=== PATIENT | male | born 1955 | race Caucasian/White ===

== ENCOUNTER → 2016-10-27 | Outpatient (CLI) | payer BC ==
[~2016-10-27] MED LIST: ALUM-80 PO; CLON0.1T12 PO; DIPH-416 PO; DPKEC250 PO; HYDR50CA2 PO; NRV5 PO; OLAN1TAB9 PO; OXYC-88 PO; SALI0.6517; ZYP10; [UNRECOGNIZED DRUG - CODE]
[2016-10-27 12:13] LABS: BASO % 0.6 %; BASO ABS # 0.05 K/uL (0-0.2); COMPLETE YES; EOS % 2.6 %; HEMATOCRIT 41.9 % (42-52); IG% 0.2 %; LYMPH % 24.4 %; LYMPH ABS # 2.14 K/uL (1.2-3.4); MEAN CELL VOLUME 96.3 fL (80-100); MEAN CORPUSCULAR HEMOGLOBIN 33.3 pg (25-34); MEAN CORPUSCULAR HGB CONC 34.6 g/dl (32-36); MEAN PLATELET VOLUME 12.7 fL (7.4-10.4); MONO % 8.6 %; NEUT % 63.6 %; PLATELET COUNT 166 K/uL (130-400); RED BLOOD COUNT 4.35 M/uL (4.7-6.1); WHITE BLOOD COUNT 8.77 K/uL (4.8-10.8)
[2016-10-27 12:40] LABS: ALT/SGPT 18 U/L (12-78); BLOOD UREA NITROGEN 22 mg/dl (7-18); BUN/CREATININE RATIO 22.3 (10-20); CARBON DIOXIDE 28 mmol/L (21-32); CHLORIDE 106 mmol/L (98-107); GLUCOSE 97 mg/dl (70-99); SODIUM 140 mmol/L (136-145)
[2016-10-27 12:43] LABS: ALKALINE PHOSPHATASE 48 U/L (45-117); AST/SGOT 14 U/L (15-37)
[2016-10-29 11:16] LABS: HEPATITIS C VIRAL RNA BY PCR <15 DETECTED IU/ML (<15); HEPATITIS C VIRAL RNA(LOG) PCR <1.18 DETECTED LOG IU/ML (<1.18)
== END | disposition home or self-care (01) ==
LOC: C.LAB1850 10:47
PROVIDERS: ATTEND Internal Medicine Infectious Disease
DX: B19.20 Unspecified viral hepatitis C without hepatic coma (principal)

== ENCOUNTER → 2016-11-24 | Outpatient (CLI) | payer BC ==
[2016-11-24 12:00] LABS: BASO % 0.5 %; BASO ABS # 0.05 K/uL (0-0.2); COMPLETE YES; EOS % 2.5 %; HEMATOCRIT 44.1 % (42-52); IG% 0.4 %; LYMPH ABS # 2.18 K/uL (1.2-3.4); MEAN CELL VOLUME 97.4 fL (80-100); MEAN CORPUSCULAR HEMOGLOBIN 32.9 pg (25-34); MEAN CORPUSCULAR HGB CONC 33.8 g/dl (32-36); MEAN PLATELET VOLUME 12.5 fL (7.4-10.4); MONO % 7.9 %; NEUT % 65.7 %; PLATELET COUNT 166 K/uL (130-400); RED BLOOD COUNT 4.53 M/uL (4.7-6.1); WHITE BLOOD COUNT 9.47 K/uL (4.8-10.8)
[2016-11-24 12:23] LABS: ALB/GLOB RATIO 0.9 (0.9-2); ALKALINE PHOSPHATASE 58 U/L (45-117); ALT/SGPT 26 U/L (12-78); AST/SGOT 18 U/L (15-37); BLOOD UREA NITROGEN 24 mg/dl (7-18); BUN/CREATININE RATIO 23.8 (10-20); CALCIUM 8.6 mg/dl (8.5-10.1); CARBON DIOXIDE 26 mmol/L (21-32); CHLORIDE 108 mmol/L (98-107); GLUCOSE 107 mg/dl (70-99); POTASSIUM 4.2 mmol/L (3.5-5.1); SODIUM 143 mmol/L (136-145)
[2016-11-26 02:32] LABS: HEPATITIS C VIRAL RNA BY PCR <15 NOT DETECTED IU/ML (<15); HEPATITIS C VIRAL RNA(LOG) PCR <1.18 NOT DETECTED LOG IU/ML (<1.18)
== END | disposition home or self-care (01) ==
LOC: C.LAB1850 10:35
PROVIDERS: ATTEND Internal Medicine Infectious Disease
DX: B19.20 Unspecified viral hepatitis C without hepatic coma (principal)

== ENCOUNTER 2021-03-01 09:38 | Inpatient (IN) ==
--- NOTE | 2021-03-01 10:28 | Emergency Department Note ---
History of Present Illness General Chief complaint: Seizure Time Seen by Provider: 03/01/21 09:57 Source: patient Mode of arrival: EMS Limitations: altered mental status History of Present Illness Provider complaint: Seizure This is a 65-year-old male who presents to the ED with seizure-like activity. 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 He had his first seizure back in January 18 at which time he was found to have the brain tumors. The patient is taking medications for his brain tumors with regards to swelling and edema. He is currently on Decadron. He is on Dilantin and valproic acid for seizure prevention. The patient did not want any radiation therapy to the brain tumors. He did not want any treatment for his lung cancer. He has not set up with hospice as of yet. The patient had several seizures today that were concerning to the and she had him brought in for evaluation and is requesting hospice care assistance. Patient had received Ativan by EMS prior to arrival. The patient has no ability to communicate on his initial evaluation. The does state that he is able to communicate somewhat but not to his full extent prior to having his first seizure back in January. Home Medications Medication Instructions Recorded Confirmed Type cyclobenzaprine 5 mg tablet 5 mg PO HS #30 tab 08/10/20 03/01/21 Rx magnesium 250 mg tablet 250 mg PO DAILY 01/25/21 03/01/21 History mecobalamin (vitamin B12) 1,000 1,000 mcg PO DAILY 01/25/21 03/01/21 History mcg chewable tablet medical marijuana 1 tab PO DAILY 01/25/21 03/01/21 History melatonin 10 mg tablet 10 mg PO HS PRN 01/25/21 03/01/21 History omega-3 fatty acids 1,000 mg 1,000 mg PO DAILY 01/25/21 03/01/21 History capsule prevagen 1 tab PO DAILY 01/25/21 03/01/21 History pyridoxine (vitamin B6) 100 mg 100 mg PO DAILY tab 01/25/21 03/01/21 History tablet amlodipine 5 mg tablet 5 mg PO DAILY #90 tab 02/01/21 03/01/21 Rx oxycodone-acetaminophen 5 mg-325 1 tab PO TID PRN #60 tab 02/02/21 03/01/21 Rx mg tablet fentanyl 12 mcg/hr transdermal 1 patch TRANSDERMAL Q72H 02/11/21 03/01/21 History patch naproxen 500 mg tablet 500 mg PO BID 02/11/21 03/01/21 History dexamethasone 4 mg tablet 4 mg PO BID #20 tab 02/15/21 03/01/21 Rx levetiracetam 500 mg tablet 1,000 mg PO BID #120 tab 02/15/21 03/01/21 Rx pantoprazole 40 mg tablet,delayed 40 mg PO DAILY #30 tab 02/15/21 03/01/21 Rx release valproic acid 250 mg capsule 500 mg PO BID #120 cap 02/15/21 03/01/21 Rx phenytoin sodium extended 100 mg 100 mg PO TID cap 02/23/21 03/01/21 History capsule Allergies Allergy/AdvReac Type Severity Reaction Status Date / Time No Known Allergies Allergy Verified 03/01/21 11:04 Past Med/Surg History Medical History Anxiety COPD (chronic obstructive pulmonary disease) Emphysema lung Frostbite of hand (~1984) chronic knee andhand pain Hepatitis C virus infection cured after antiviral drug therapy History of frostbite Lost several fingers on bilat hands HTN (hypertension) IFG (impaired fasting glucose) Knee pain Lung nodule 2014, CT monitoring completed Male erectile disorder of organic origin MGUS (monoclonal gammopathy of unknown significance) (~2013) Seizure disorder (~2014) Tobacco use disorder 1-2 ppd Surgical History H/O craniotomy (2014) 2015, 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 Grandmother (Paternal) , Passed age 89 of Cancer in Abdomen? No problems noted. Father , Passed age 72 of [place] Prostate cancer, Onset Age: 71 Had radiation Mother , Passed age 68 from diabetic complications No problems noted. Brother Prostate cancer, Onset Age: 58 Currently being worked up / treated Daughter No problems noted. Son No problems noted. Denies family history of Ovarian cancer Breast cancer Lung cancer Colorectal cancer Stroke Social History Smoking Status: Current every day smoker Tobacco Type: Cigarettes Age Started Using Tobacco: 15; packs per day: 1.5; Years Smoked: 48; Second Hand Exposure: No; Hx Alcohol Use: Yes Alcohol type: wine Alcohol Intake Frequency: 2-4 x/Month Hx Substance Use: No Preferred Language: Frisian Communication Ability: Effective Visual Impairment: No Limitations Hearing Ability: Hard of Hearing Water Pump Assembler Required: No Beliefs That Will Affect Care: None marital status: Current Living Situation: Spouse current occupational status: employed 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) Feels Safe at Home: Yes Childhood Exposure to Second-Hand Smoke: Yes caffeine: Yes during the past year weight has: remained stable Dental Care, Regularly: No Physical Activity Frequency: Daily Physical Activity Frequency Comment: THROUGH WORK Seatbelt Use: always Sunscreen Use: No Review of Systems Unobtainable due to cognitive status Physical Exam Vital Signs Vital Signs - 24 hr 03/01/21 09:48 03/01/21 09:54 03/01/21 10:00 Temperature 36.6 C Temperature Source Oral Pulse Rate 71 70 68 Pulse Rate from SpO2 Sensor 69 Respiratory Rate 16 24 16 Blood Pressure 110/52 L 110/52 L Blood Pressure Mean 71 71 Pulse Oximetry 91 88 L Oxygen Delivery Method Oxymask Sepsis Recent Fever Within 48 Hours No Sepsis New/Unexplained Change in Mental Status N/A Sepsis Action Taken by Nursing No Action Required 03/01/21 10:16 03/01/21 10:30 03/01/21 11:00 Temperature Temperature Source Pulse Rate 65 63 Pulse Rate from SpO2 Sensor 65 63 Respiratory Rate 14 18 Blood Pressure Blood Pressure Mean Pulse Oximetry 92 93 Oxygen Delivery Method Oxymask Sepsis Recent Fever Within 48 Hours Sepsis New/Unexplained Change in Mental Status Sepsis Action Taken by Nursing 03/01/21 11:30 Temperature Temperature Source Pulse Rate 62 Pulse Rate from SpO2 Sensor 62 Respiratory Rate 23 Blood Pressure 113/59 L Blood Pressure Mean 77 Pulse Oximetry 94 Oxygen Delivery Method Sepsis Recent Fever Within 48 Hours Sepsis New/Unexplained Change in Mental Status Sepsis Action Taken by Nursing CONSTITUTIONAL/VITAL SIGNS: Reviewed / noted above. GENERAL: Non-toxic in appearance. Appears to be resting comfortably. INTEGUMENTARY: Warm, dry, and [place]. HEAD: Normocephalic. EYES: without scleral icterus or trauma. ENT/OROPHARYNX: clear and moist. LYMPHADENOPATHY/NECK: Is supple . RESPIRATORY: Lungs clear and equal. CARDIOVASCULAR: Regular rate and rhythm. GI/ABDOMEN: Soft. EXTREMITIES: Warm and well perfused. NEUROLOGICAL: Patient is unresponsive to sternal rub. Breathing with occasional pause. MUSCULOSKELETAL: No trauma. TRIAGE NURSING DOCUMENTATION REVIEWED. Medical Decision Making Differential Diagnosis Differential includes acute cardiac dysrhythmia, microinfarction, CVA, TIA, dehydration, anemia, electrolyte disturbance, seizure, trauma, intracranial bleeding, acute vascular catastrophe, thoracic aortic dissection, PE, abdominal aortic aneurysm rupture, infection, hypoglycemia, overdose, trauma. Medical Records Attestation: I reviewed the patient's medical records. Home Medications Current Medication List: was personally reviewed by me Laboratory Data Attestation: I reviewed the patient's lab results. Result diagrams: 03/01/21 10:19 03/01/21 10:19 Lab Results 03/01/21 03/01/21 03/01/21 Range/Units 10:19 10:19 10:19 WBC 13.56 H (4.8-10.8) K/uL RBC 4.12 L (4.7-6.1) M/uL Hgb 13.4 L (14.0-18.0) g/dL Hct 40.4 L (42-52) % MCV 98.1 (80-100) fL MCH 32.5 (25-34) pg MCHC 33.2 (32-36) g/dL RDW Std Deviation 53.7 H (36.4-46.3) fL RDW Coeff of Keny 15.0 H (11.5-14.5) % Plt Count 196 (130-400) K/uL MPV 10.7 H (7.4-10.4) fL Immature Gran % (Auto) 1.0 % Neut % (Auto) 90.1 % Lymph % (Auto) 4.6 % Gilmer % (Auto) 4.1 % Eos % (Auto) 0.1 % Baso % (Auto) 0.1 % Neut # (Auto) 12.22 H (1.4-6.5) K/uL Lymph # (Auto) 0.62 L (1.2-3.4) K/uL Gilmer # (Auto) 0.56 (0.11-0.59) K/uL Eos # (Auto) 0.02 (0-0.5) K/uL Baso # (Auto) 0.01 (0-0.2) K/uL Immature Gran # (Auto) 0.13 H (0.00-0.02) K/uL Sodium 141 (136-145) mmol/L Potassium 3.8 (3.5-5.1) mmol/L Chloride 108 H (98-107) mmol/L Carbon Dioxide 26 (21-32) mmol/L Anion Gap 7.0 (3-11) BUN 22 H (7-18) mg/dl Creatinine 1.01 (0.6-1.4) mg/dl Est Cr Clr Drug Dosing 72.9 ml/min Est GFR ( Amer) 90.0 ml/min Est GFR (Non-Af Amer) 77.7 ml/min BUN/Creatinine Ratio 21.4 H (10-20) Glucose 109 H (70-99) mg/dl Calcium 8.1 L (8.5-10.1) mg/dl Phenytoin 3.9 L (10-20) mcg/ml Valproic Acid 20 L (50-100) mcg/ml Imaging Data Radiologist's Impression: Head CT 03/01/21 10:10 CT head/brain wo con CLINICAL HISTORY: Seizure. History of brain neoplasm. COMPARISON STUDY: 01/18/2021 TECHNIQUE: Axial CT of the brain is performed from the vertex to the skull base . IV contrast was not administered for this examination. A dose lowering technique was utilized adhering to the principles of ALARA. CT DOSE: 614.27 mGy.cm FINDINGS: There is enlarging 23 mm hyperdense left temporal lobe mass with surrounding vasogenic edema. There is an enlarging 18 mm right posterior parietal mass with surrounding vasogenic edema. There is no CT evidence of acute cortical infarction. There is no midline shift. There are postsurgical changes of a prior right frontal craniotomy. There is persistent right frontal lobe encephalomalacia. There is stable CSF density located medial to the superior aspect of the lateral ventricles anteriorly. There is persistent mild ventricular dilatation. There is no evidence of acute sinusitis IMPRESSION: 1. Enlarging bilateral hyperdense intraparenchymal lesions with surrounding vasogenic edema. The findings are highly suspicious for intracranial metastasis. ACT 112: Negative or not required by law. Electronically signed by: Eduardo Muse M.D. 03/01/2021 10:49 AM ECG Data Attestation: I personally reviewed and interpreted this ECG as follows: Indication: + weakness Rate (beats per minute): 72 Rhythm: + normal sinus ECG Intervals/blocks: + Normal QT-c ECG ST segments: no ST elevation ECG Findings: + PVCs MDM Narrative Patient presents with seizure activity and known metastatic cancer to the brain from his lungs. is looking for hospice assistance. He was given Ativan by EMS because of ongoing seizures this morning. He is a DNR/DNI. The patient's EKG showed a sinus rhythm at a rate of 72. A CT scan of the brain shows enlarging bilateral hyperdense intraparenchymal lesions with surrounding vasogenic edema. White blood cell count is 13. Hemoglobin is 13.4. Chemistry panel was unremarkable. Dilantin level was 3.9 which is low. Valproic acid level is low at 20. The patient was giving loading doses of Dilantin and valproic acid. Dr. Corcoran from hospice/palliative care did see the patient in the ED as the requests hospice assistance. Because the patient is still obtunded from the seizures and Ativan, he will require observation in the hospital. During that time hospice will be arranged. Impression & Plan Lung cancer metastatic to brain, Epileptic seizure, AMS (altered mental status) Discharge Plan Visit Data Chief Complaint: Seizure ED Provider: Juwna Thurman Discharge Problem: Lung cancer metastatic to brain, Epileptic seizure, AMS (altered mental status) Patient Disposition: Being Evaluated by Hospitalist Forms Stand Alone Forms: My [facility] 3ROAM Prescriptions Prescriptions: No Action naproxen 500 mg tablet 500 mg PO BID RF: 0 fentanyl 12 mcg/hr patch 72 hour 1 patch transdermal Q72H RF: 0 cyclobenzaprine 5 mg tablet 5 mg PO HS Qty: 30 RF: 5 amlodipine 5 mg tablet 5 mg PO DAILY Qty: 90 RF: 3 levetiracetam [Keppra] 500 mg tablet 1,000 mg PO BID Qty: 120 RF: 3 pantoprazole 40 mg tablet,delayed release (DR/EC) 40 mg PO DAILY Qty: 30 RF: 5 valproic acid 250 mg capsule 500 mg PO BID Qty: 120 RF: 5 dexamethasone 4 mg tablet 4 mg PO BID Qty: 20 RF: 0 phenytoin sodium extended 100 mg capsule 100 mg PO TID RF: 0 mecobalamin (vitamin B12) 1,000 mcg tablet,chewable 1,000 mcg PO DAILY RF: 0 magnesium 250 mg tablet 250 mg PO DAILY RF: 0 melatonin 10 mg tablet 10 mg PO HS PRN (Reason: Insomnia) RF: 0 prevagen 1 tab PO DAILY RF: 0 medical marijuana 1 tab PO DAILY RF: 0 omega-3 fatty acids 1,000 mg capsule 1,000 mg PO DAILY RF: 0 pyridoxine (vitamin B6) 100 mg tablet 100 mg PO DAILY RF: 0 oxycodone-acetaminophen [Percocet] 5-325 mg tablet 1 tab PO TID PRN (Reason: pain) Qty: 60 RF: 0 Referrals Referrals: Ubaldo Armstrong DO [Primary Care Provider] -
[2021-03-01 10:33] LABS: Basophils # (auto) 0.01 K/uL (0-0.2); Basophils % (auto) 0.1 %; Eosinophils # (auto) 0.02 K/uL (0-0.5); Eosinophils % (auto) 0.1 %; Hematocrit (blood only) 40.4 % (42-52); Hemoglobin 13.4 g/dL (14.0-18.0); Immature Granulocytes # (auto) 0.13 K/uL (0.00-0.02); Lymphocytes # (auto) 0.62 K/uL (1.2-3.4); Lymphocytes % (auto) 4.6 %; Mean Corpuscular Hemoglobin 32.5 pg (25-34); Mean Corpuscular Hgb Conc 33.2 g/dL (32-36); Mean Corpuscular Volume 98.1 fL (80-100); Mean Platelet Volume 10.7 fL (7.4-10.4); Monocytes # (auto) 0.56 K/uL (0.11-0.59); Monocytes % (auto) 4.1 %; Neutrophils # (auto) 12.22 K/uL (1.4-6.5); Neutrophils % (auto) 90.1 %; Platelet Count 196 K/uL (130-400); RDW Standard Deviation 53.7 fL (36.4-46.3); Red Blood Count 4.12 M/uL (4.7-6.1); White Blood Count 13.56 K/uL (4.8-10.8)
[2021-03-01 10:49] LABS: BUN Creatinine Ratio 21.4 (10-20); Calcium 8.1 mg/dl (8.5-10.1); Creatinine Clr Calc Pharmacy 72.9 ml/min; Est GFR (Non-African American) 77.7 ml/min; Potassium 3.8 mmol/L (3.5-5.1)
--- NOTE | 2021-03-01 10:50 | CT Scan Report ---
CT head/brain wo con CLINICAL HISTORY: Seizure. History of brain neoplasm. COMPARISON STUDY: 01/18/2021 TECHNIQUE: Axial CT of the brain is performed from the vertex to the skull base. IV contrast was not administered for this examination. A dose lowering technique was utilized adhering to the principles of ALARA. CT DOSE: 614.27 mGy.cm FINDINGS: There is enlarging 23 mm hyperdense left temporal lobe mass with surrounding vasogenic edema. There i s an enlarging 18 mm right posterior parietal mass with surrounding vasogenic edema. There is no CT e vidence of acute cortical infarction. There is no midline shift. There are postsurgical changes of a prior right frontal craniotomy. There is persistent right frontal lobe encephalomalacia. There is stable CSF density located medial t o the superior aspect of the lateral ventricles anteriorly. There is persistent mild ventricular dilatation. There is no evidence of acute sinusitis IMPRESSION: 1. Enlarging bilateral hyperdense intraparenchymal lesions with surrounding vasogenic edema. The find ings are highly suspicious for intracranial metastasis. ACT 112: Negative or not required by law. Electronically signed by: Eduardo Muse M.D. 03/01/2021 10:49 AM
[2021-03-01 11:06] LABS: Phenytoin (Dilantin) 3.9 mcg/ml (10-20)
[2021-03-01] MEDS ORDERED: VALPROATE SOD IV STA (12:17)
[2021-03-01] MEDS ORDERED: PHENYTOIN IV STA ×2 (12:17→12:28)
[2021-03-01] MEDS ORDERED: DEXTROSE 5% IV STA (12:17)
[2021-03-01] MEDS ORDERED: SODIUM CHLORIDE 0.9% IV STA ×2 (12:17→12:28)
--- NOTE | 2021-03-01 12:43 | Palliative Care Consultation ---
Date of Consultation March 01, 2021 Assessment & Plan (1) AMS (altered mental status): He is now several hours out from his seizure and remains obtunded. He did receive ativan in the ER. He is not capable of decision making at this time but has discussed his thoughts with his in the past. (2) Epileptic seizure: (3) Lung cancer metastatic to brain: (4) Palliative care encounter: I met with is at bedside. She tells me that Дмитрий has been very consistent in his desire not to pursue cancer treatment. He had said this in the past when friends were diagnosed with cancer as well. They live at home with their 17 yo son who has been struggling with Дмитрий's illness as well as his own personal issues. They do not have a lot of social or spiritual support. Дмитрий would want to be at home for his and she wants to care for him at home. We discussed hospice care for support and symptom management for Дмитрий and his family at home. We reviewed the hospice benefit and the resources available. She would like to pursue this. I did speak with case management and they will set it up. I spoke with Dr. Thurman. Дмитрий may need admission for further observation until his mental status improves. Palliative care can follow if admitted. History of Present Illness Reason for Consultation: goals of care, hospice Requesting Physician: Dr. Thurman History of Present Illness 65 yo gentleman who was diagnosed about one month ago with lung cancer metastatic to the brain when he presented to the ER in status epilepticus. He does have a history of seizures since being diagnosed with a "brain cyst" in 2014 per his . He had an excision and had been managed on antiepileptic medications. CT done in January shows multiple intraparenchymal lesions with vasogenic edema. He was also found to have a 4cm left hilar lung mass at that time. He did meet with radiation oncology to discuss palliative radiation. He decided against pursuing radiation treatment or other cancer treatment. He has been on oral decadron at home in addition to his antiepileptics. He had been able to go into his work at times and had been functioning independently at home prior to today. He is currently obtunded but appears comfortable. He was also recently diagnosed with left cephalic vein thrombosis. Allergies Allergy/AdvReac Type Severity Reaction Status Date / Time No Known Allergies Allergy Verified 03/01/21 11:04 Home Medications Medication Instructions Recorded Confirmed Type cyclobenzaprine 5 mg tablet 5 mg PO HS #30 tab 08/10/20 03/01/21 Rx magnesium 250 mg tablet 250 mg PO DAILY 01/25/21 03/01/21 History mecobalamin (vitamin B12) 1,000 1,000 mcg PO DAILY 01/25/21 03/01/21 History mcg chewable tablet medical marijuana 1 tab PO DAILY 01/25/21 03/01/21 History melatonin 10 mg tablet 10 mg PO HS PRN 01/25/21 03/01/21 History omega-3 fatty acids 1,000 mg 1,000 mg PO DAILY 01/25/21 03/01/21 History capsule prevagen 1 tab PO DAILY 01/25/21 03/01/21 History pyridoxine (vitamin B6) 100 mg 100 mg PO DAILY tab 01/25/21 03/01/21 History tablet amlodipine 5 mg tablet 5 mg PO DAILY #90 tab 02/01/21 03/01/21 Rx oxycodone-acetaminophen 5 mg-325 1 tab PO TID PRN #60 tab 02/02/21 03/01/21 Rx mg tablet fentanyl 12 mcg/hr transdermal 1 patch TRANSDERMAL Q72H 02/11/21 03/01/21 History patch naproxen 500 mg tablet 500 mg PO BID 02/11/21 03/01/21 History dexamethasone 4 mg tablet 4 mg PO BID #20 tab 02/15/21 03/01/21 Rx levetiracetam 500 mg tablet 1,000 mg PO BID #120 tab 02/15/21 03/01/21 Rx pantoprazole 40 mg tablet,delayed 40 mg PO DAILY #30 tab 02/15/21 03/01/21 Rx release valproic acid 250 mg capsule 500 mg PO BID #120 cap 02/15/21 03/01/21 Rx phenytoin sodium extended 100 mg 100 mg PO TID cap 02/23/21 03/01/21 History capsule Patient History Medical History Anxiety COPD (chronic obstructive pulmonary disease) Emphysema lung Frostbite of hand (~1984) chronic knee andhand pain Hepatitis C virus infection cured after antiviral drug therapy History of frostbite Lost several fingers on bilat hands HTN (hypertension) IFG (impaired fasting glucose) Knee pain Lung nodule 2014, CT monitoring completed Male erectile disorder of organic origin MGUS (monoclonal gammopathy of unknown significance) (~2013) Seizure disorder (~2014) Tobacco use disorder 1-2 ppd Surgical History H/O craniotomy (2015) 2015, 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 Grandmother (Paternal) , Passed age 89 of Cancer in Abdomen? No problems noted. Father , Passed age 72 of [place] Prostate cancer, Onset Age: 71 Had radiation Mother , Passed age 68 from diabetic complications No problems noted. Brother Prostate cancer, Onset Age: 58 Currently being worked up / treated Daughter No problems noted. Son No problems noted. Denies family history of Ovarian cancer Breast cancer Lung cancer Colorectal cancer Stroke Social History Smoking Status: Current every day smoker Tobacco Type: Cigarettes Age Started Using Tobacco: 15; packs per day: 1.5; Years Smoked: 48; Second Hand Exposure: No; Hx Alcohol Use: Yes Alcohol type: wine Alcohol Intake Frequency: 2-4 x/Month Hx Substance Use: No Preferred Language: Chinese Communication Ability: Effective Visual Impairment: No Limitations Hearing Ability: Hard of Hearing Windows And Doors Installer Required: No Beliefs That Will Affect Care: None marital status: Current Living Situation: Spouse current occupational status: employed 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) Feels Safe at Home: Yes Childhood Exposure to Second-Hand Smoke: Yes caffeine: Yes during the past year weight has: remained stable Dental Care, Regularly: No Physical Activity Frequency: Daily Physical Activity Frequency Comment: THROUGH WORK Seatbelt Use: always Sunscreen Use: No Review of Systems Review of Systems: Unobtainable due to reduced consciousness [place] Symptom Assessment Scale Pain by observation 0/3 Dyspnea by observation 0/3 Drowsiness 3/3 Physical Exam Constitutional: no acute distress ENMT: Mouth: + dry oral mucous membranes Respiratory: + uses accessory muscles Cardiovascular: Rate/Rhythm: regular rate and regular rhythm Gastrointestinal (Abdomen): Percussion/Palpation: + abdomen tender; + abdomen not soft Musculoskeletal: Extremities: extremities normal to inspection Skin: warm and dry Neurologic: + obtunded Results & Data ([facility]) Vital Signs (Past 12 Hours) Vital Signs Temp Pulse Resp BP Pulse Ox 03/01/21 11:30 62 23 113/59 L 94 03/01/21 11:00 63 18 93 03/01/21 10:30 65 14 92 03/01/21 10:00 68 16 88 L 03/01/21 09:54 97.9 F 70 24 110/52 L 91 03/01/21 09:48 71 16 110/52 L PG Care Time/CCT Total # of Minutes Spent Total Time Spent with Patient: Total time spent is greater than 50% in coordination of care (as documented) at patient's floor/unit and/or counseling patient: total time spent 70 minutes with more than 50% of time spent on goals of care, symptom management, hospice, family education and support, coordination of care. Coding Level of Care Code 19918 Inpt Consult Level 4 Diagnoses AMS (altered mental status) R41.82 Epileptic seizure G40.909 Lung cancer metastatic to brain C34.90; C79.31 Palliative care encounter Z51.5
--- NOTE | 2021-03-01 12:55 | History & Physical Report ---
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 Can continue both of these for now until patient is alert enough to start taking p.o.'s again Start Decadron 4 mg IV twice daily Hold patient's other medications and still he is more alert DVT prophylaxis with Lovenox (2) Lung cancer metastatic to brain: Patient is previously refused any treatment for this Palliative care to work on hospice placement, may consider GIP if patient's condition continues to decline History of Present Illness Chief Complaint: Seizure Primary Care Provider: Ubaldo Armstrong, This is a 65-year-old male with past medical history of non-small cell lung carcinoma, metastatic to the brain that presents status post seizure. Patient is obtunded and unable to provide any history. History is therefore per ER documentation. It appears the patient has a recent diagnosis of lung cancer with mets to the brain, head initially been followed at [facility]. Was referred to [place] for gamma knife treatment secondary to brain mets. Per documentation, it sounds like the patient had ultimately refused this intervention. At that time, reynaldo ent was placed on Keppra, phenytoin, and dexamethasone p.o. Was following at this institution with Dr. Lucero. ER documentation also notes that the family had otherwise refused treatment for his lung cancer. Patient apparently had several seizures today as witnessed by the . She was concerned and felt that the patient was ready to transition to hospice care and she required assistance. Patient had been seen by EMS and was given 4 mg total Ativan. Was told that Dr. Corcoran from palliative care is already evaluate the patient spoke to the family and we are now working towards transition to hospice care. Allergies Allergy/AdvReac Type Severity Reaction Status Date / Time No Known Allergies Allergy Verified 03/01/21 11:04 Home Medications Medication Instructions Recorded Confirmed Type cyclobenzaprine 5 mg tablet 5 mg PO HS #30 tab 08/10/20 03/01/21 Rx magnesium 250 mg tablet 250 mg PO DAILY 01/25/21 03/01/21 History mecobalamin (vitamin B12) 1,000 1,000 mcg PO DAILY 01/25/21 03/01/21 History mcg chewable tablet medical marijuana 1 tab PO DAILY 01/25/21 03/01/21 History melatonin 10 mg tablet 10 mg PO HS PRN 01/25/21 03/01/21 History omega-3 fatty acids 1,000 mg 1,000 mg PO DAILY 01/25/21 03/01/21 History capsule prevagen 1 tab PO DAILY 01/25/21 03/01/21 History pyridoxine (vitamin B6) 100 mg 100 mg PO DAILY tab 01/25/21 03/01/21 History tablet amlodipine 5 mg tablet 5 mg PO DAILY #90 tab 02/01/21 03/01/21 Rx oxycodone-acetaminophen 5 mg-325 1 tab PO TID PRN #60 tab 02/02/21 03/01/21 Rx mg tablet fentanyl 12 mcg/hr transdermal 1 patch TRANSDERMAL Q72H 02/11/21 03/01/21 History patch naproxen 500 mg tablet 500 mg PO BID 02/11/21 03/01/21 History dexamethasone 4 mg tablet 4 mg PO BID #20 tab 02/15/21 03/01/21 Rx levetiracetam 500 mg tablet 1,000 mg PO BID #120 tab 02/15/21 03/01/21 Rx pantoprazole 40 mg tablet,delayed 40 mg PO DAILY #30 tab 02/15/21 03/01/21 Rx release valproic acid 250 mg capsule 500 mg PO BID #120 cap 02/15/21 03/01/21 Rx phenytoin sodium extended 100 mg 100 mg PO TID cap 02/23/21 03/01/21 History capsule Past Med/Surg History Medical History Anxiety COPD (chronic obstructive pulmonary disease) Emphysema lung Frostbite of hand (~1984) chronic knee andhand pain Hepatitis C virus infection cured after antiviral drug therapy History of frostbite Lost several fingers on bilat hands HTN (hypertension) IFG (impaired fasting glucose) Knee pain Lung nodule 2014, CT monitoring completed Male erectile disorder of organic origin MGUS (monoclonal gammopathy of unknown significance) (~2013) Seizure disorder (~2014) Tobacco use disorder 1-2 ppd Surgical History H/O craniotomy (2014) 2015, 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 Grandmother (Paternal) , Passed age 89 of Cancer in Abdomen? No problems noted. Father , Passed age 72 of [place] Prostate cancer, Onset Age: 71 Had radiation Mother , Passed age 68 from diabetic complications No problems noted. Brother Prostate cancer, Onset Age: 58 Currently being worked up / treated Daughter No problems noted. Son No problems noted. Denies family history of Ovarian cancer Breast cancer Lung cancer Colorectal cancer Stroke Social History Smoking Status: Current every day smoker Tobacco Type: Cigarettes Age Started Using Tobacco: 15; packs per day: 1.5; Years Smoked: 48; Second Hand Exposure: No; Hx Alcohol Use: Yes Alcohol type: wine Alcohol Intake Frequency: 2-4 x/Month Hx Substance Use: No Preferred Language: Upper Sorbian Communication Ability: Effective Visual Impairment: No Limitations Hearing Ability: Hard of Hearing Order Entry Technician Required: No Beliefs That Will Affect Care: None marital status: Current Living Situation: Spouse current occupational status: employed 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) Feels Safe at Home: Yes Childhood Exposure to Second-Hand Smoke: Yes caffeine: Yes during the past year weight has: remained stable Dental Care, Regularly: No Physical Activity Frequency: Daily Physical Activity Frequency Comment: THROUGH WORK Seatbelt Use: always Sunscreen Use: No Review of Systems Review of Systems: Unobtainable due to reduced consciousness Physical Exam Constitutional: Patient is obtunded and does not respond to verbal stimulus Cachectic Respiratory: normal respiratory effort Auscultation: + diminished lung sounds Very limited exam Cardiovascular: Rate/Rhythm: regular rate and regular rhythm Very limited exam Gastrointestinal (Abdomen): normal bowel sounds, soft, nontender, no hepatosplenomegaly Neurologic: Obtunded, does move all extremities ago without meaning Results & Data Results & Data ([facility]) Vital Signs (Past 12 Hours) Vital Signs Temp Pulse Resp BP Pulse Ox 03/01/21 11:30 62 23 113/59 L 94 03/01/21 11:00 63 18 93 03/01/21 10:30 65 14 92 03/01/21 10:00 68 16 88 L 03/01/21 09:54 36.6 C 70 24 110/52 L 91 03/01/21 09:48 71 16 110/52 L Diagnostic Findings CLINICAL HISTORY: Seizure. History of brain neoplasm. COMPARISON STUDY: 01/18/2021 TECHNIQUE: Axial CT of the brain is performed from the vertex to the skull base. IV contrast was not administered for this examination. A dose lowering technique was utilized adhering to the principles of ALARA. CT DOSE: 614.27 mGy.cm FINDINGS: There is enlarging 23 mm hyperdense left temporal lobe mass with surrounding vasogenic edema. There is an enlarging 18 mm right posterior parietal mass with surrounding vasogenic edema. There is no CT evidence of acute cortical infarction. There is no midline shift. There are postsurgical changes of a prior right frontal craniotomy. There is persistent right frontal lobe encephalomalacia. There is stable CSF density located medial to the superior aspect of the lateral ventricles anteriorly. There is persistent mild ventricular dilatation. There is no evidence of acute sinusitis IMPRESSION: 1. Enlarging bilateral hyperdense intraparenchymal lesions with surrounding vasogenic edema. The findings are highly suspicious for intracranial metastasis. PG Care Time/CCT Total # of Minutes Spent Total Time Spent with Patient: Total time spent is greater than 50% in coordination of care (as documented) at patient's floor/unit and/or counseling patient: Coding Level of Care Code 98941 Initial Inpt Care Lvl 3 Diagnoses Epileptic seizure G40.909 Lung cancer metastatic to brain C34.90; C79.31
--- NOTE | 2021-03-01 14:35 | Electrocardiogram Report ---
Test Reason : Blood Pressure : / mmHG Vent. Rate : 072 BPM Atrial Rate : 072 BPM P-R Int : 128 ms QRS Dur : 090 ms QT Int : 382 ms P-R-T Axes : 053 072 039 degrees QTc Int : 418 ms Sinus rhythm with occasional Premature ventricular complexes Otherwise normal ECG When compared with ECG of 18-JAN-2021 07:33, Premature ventricular complexes are now Present ST no longer depressed in Lateral leads T wave inversion no longer evident in Inferior leads Confirmed by Robinson Michelle ([id number]) on 03/01/2021 2:34:49 PM Referred By: REFERRED SELF Confirmed By:Robinson Michelle
[2021-03-01] MEDS ORDERED: SODIUM CHLORIDE 0.9% 10ML FLUSH IV STA (16:44)
[2021-03-01] MEDS ORDERED: ONDANSETRON INJ 2 MG/ML 2 ML VIAL IV PRN (16:44)
[2021-03-01] MEDS: SODIUM CHLORIDE 0.9% 1000ML 1,000 ML IV SCH (17:41)
[2021-03-01] MEDS: dexAMETHasone 4 MG in SYRINGE 0 ML IV SCH ×2 (17:41→22:46)
[2021-03-01] MEDS: CHECK fentaNYL PATCH PLACEMENT SCH ×2 (17:53→23:24)
[2021-03-01] MEDS: PHENYTOIN 100 MG in SYRINGE 0 ML IV SCH (20:28)
[2021-03-01] MEDS ORDERED: ENOXAPARIN INJ 40 MG/0.4 ML SYR SQ SCH (21:00)
[2021-03-02] MEDS: VALPROATE SOD 500 MG in DEXTROSE 5% 50 ML IV SCH ×2 (01:56→13:24)
[2021-03-02] MEDS: SODIUM CHLORIDE 0.9% 1000ML 1,000 ML IV SCH ×2 (03:01→13:21)
[2021-03-02 06:50] LABS: Basophils # (auto) 0.02 K/uL (0-0.2); Basophils % (auto) 0.2 %; Hematocrit (blood only) 41.1 % (42-52); Hemoglobin 13.9 g/dL (14.0-18.0); Immature Granulocytes # (auto) 0.07 K/uL (0.00-0.02); Immature Granulocytes % (auto) 0.6 %; Lymphocytes # (auto) 1.74 K/uL (1.2-3.4); Lymphocytes % (auto) 14.5 %; Mean Corpuscular Hemoglobin 32.9 pg (25-34); Mean Corpuscular Hgb Conc 33.8 g/dL (32-36); Mean Corpuscular Volume 97.2 fL (80-100); Mean Platelet Volume 10.6 fL (7.4-10.4); Monocytes # (auto) 0.87 K/uL (0.11-0.59); Monocytes % (auto) 7.3 %; Neutrophils # (auto) 9.28 K/uL (1.4-6.5); Neutrophils % (auto) 77.4 %; Platelet Count 240 K/uL (130-400); RDW Coefficient of Variation 14.8 % (11.5-14.5); RDW Standard Deviation 52.8 fL (36.4-46.3); Red Blood Count 4.23 M/uL (4.7-6.1); White Blood Count 11.98 K/uL (4.8-10.8)
[2021-03-02 07:20] LABS: BUN Creatinine Ratio 27.3 (10-20); Calcium 8.1 mg/dl (8.5-10.1); Creatinine Clr Calc Pharmacy 111.6 ml/min; Est GFR (African American) 117.6 ml/min; Est GFR (Non-African American) 101.5 ml/min; Magnesium 2.1 mg/dl (1.8-2.4); Potassium 3.7 mmol/L (3.5-5.1)
[2021-03-02] MEDS: PHENYTOIN 100 MG in SYRINGE 0 ML IV SCH ×3 (09:11→21:52)
[2021-03-02] MEDS: CHECK fentaNYL PATCH PLACEMENT SCH ×2 (09:16→15:01)
[2021-03-02] MEDS: dexAMETHasone 4 MG in SYRINGE 0 ML IV SCH ×2 (09:16→21:53)
[2021-03-02] MEDS: fentaNYL 12 MCG/HR TDSY TD SCH (09:22)
--- NOTE | 2021-03-02 14:12 | Palliative Care Progress Note ---
Date of Service March 02, 2021 Assessment & Plan (1) Palliative care encounter: While Дмитрий is more awake today, he is not near his baseline. I met with his and talked about plan of care. She is not able to take care of him at home with his current status and is concerned about the welfare of their teenage son at home if Дмитрий is dying at home. He has been very clear that he would want to pursue comfort directed care and told his today that he wants to . We will shift focus of care to comfort measures only and monitor over the next day or so. He made need SNF placement and she is agreeable to this. I spoke with case management to update Ena. (2) Epileptic seizure: (3) AMS (altered mental status): (4) Lung cancer metastatic to brain: Admission and Anticipated Discharge Date Admission Date: March 01, 2021 Subjective More alert today but confused. He answers yes and no questions and repeatedly says "my brain". He appears comfortable and denies pain or dyspnea. Review of Systems Review of Systems: [place] Symptom Assessment Scale Pain0/3 Dyspnea 0/3 Nausea 0/3 Anxiety 1/3 Fatigue 2/3 Drowsiness 2/3 Palliative Performance Score 30% Physical Exam Constitutional: + disheveled and + lethargic ENMT: Mouth: + dry oral mucous membranes Respiratory: normal respiratory effort; no labored breathing Gastrointestinal (Abdomen): Percussion/Palpation: abdomen nontender Neurologic: + confused Results & Data ([facility]) Vital Signs (Past 12 Hours) Vital Signs Temp Pulse Resp BP Pulse Ox 03/02/21 11:25 99.0 F 59 L 20 168/91 H 93 03/02/21 06:55 98.4 F 61 18 153/79 H 91 03/02/21 03:05 98.2 F 62 20 156/78 H 99 PG Care Time/CCT Total # of Minutes Spent Total Time Spent with Patient: Total time spent is greater than 50% in coordination of care (as documented) at patient's floor/unit and/or counseling patient: total time spent 45 minutes with more than 50% of time spent on goals of care, symptom management, family education and support. Coding Level of Care Code 96319 Subseq Hosp Care Lvl 3 Diagnoses Palliative care encounter Z51.5 Epileptic seizure G40.909 AMS (altered mental status) R41.82 Lung cancer metastatic to brain C34.90; C79.31 Time Spent (min) 45
[2021-03-02] MEDS ORDERED: LORazepam 1 MG/2 ML VIAL IV PRN (16:07)
[2021-03-03] MEDS: VALPROATE SOD 500 MG in DEXTROSE 5% 50 ML IV SCH ×2 (02:18→13:42)
[2021-03-03] MEDS: PHENYTOIN 100 MG in SYRINGE 0 ML IV SCH ×2 (08:46→13:41)
[2021-03-03] MEDS: dexAMETHasone 4 MG in SYRINGE 0 ML IV SCH ×2 (08:57→21:19)
[2021-03-03] MEDS: CHECK fentaNYL PATCH PLACEMENT SCH ×3 (08:57→15:48)
--- NOTE | 2021-03-03 12:40 | Palliative Care Progress Note ---
Date of Service March 03, 2021 Assessment & Plan (1) Palliative care encounter: Дмитрий is aware that he is dying from cancer. He confirms that he would not want any radiation or other cancer treatment at this time. "What's the point?" He tells me that his goal would be to be at home and spend his remaining time with is family. 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 After discussion with is , Martina, yesterday, she had concerns about being able to care for him at home. I talked with her since his mental status has improved about what her comfort level is. She is still concer sean about managing his care and knows that he will decline. She is also worried about the effect of him dying at home on her 17 yo son. She would like to pursue NH placement despite improvement in mental status. (2) Epileptic seizure: (3) Lung cancer metastatic to brain: Admission and Anticipated Discharge Date Admission Date: March 01, 2021 Subjective Awake and alert. Looking for denture paste in his toiletries. He does not recall the last few days. When I asked his if he knew why he was in the hospital, he said, "my brain". He denies pain, shortness of breath or discomfort. Review of Systems Review of Systems: [place] Symptom Assessment Scale Pain 0/3 Anxiety 1/3 Nausea 0/3 Dyspnea 0/3 Fatigue 2/3 Drowsiness 0/3 Palliative Performance Score 30% Physical Exam Constitutional: + disheveled; no acute distress ENMT: Mouth: + dry oral mucous membranes edentulous Respiratory: normal respiratory effort; no labored breathing Gastrointestinal (Abdomen): Inspection/Auscultation: abdomen not distended Percussion/Palpation: abdomen nontender Neurologic: mild confusion, some word searching Results & Data ([facility]) Vital Signs (Past 12 Hours) Vital Signs Temp Pulse Resp BP Pulse Ox 03/03/21 07:57 98.6 F 67 16 169/100 H 96 PG Care Time/CCT Total # of Minutes Spent Total Time Spent with Patient: Total time spent is greater than 50% in coordination of care (as documented) at patient's floor/unit and/or counseling patient:total time spent 35 minutes with more than 50% of time spent on goals of care, family education and support. Coding Level of Care Code 80079 Subseq Hosp Care Lvl 3 Diagnoses Palliative care encounter Z51.5 Epileptic seizure G40.909 Lung cancer metastatic to brain C34.90; C79.31
--- NOTE | 2021-03-03 16:55 | Hospitalist Progress Note ---
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, CT scan reveals vasogenic edema Patient was also subtherapeutic on valproic acid and phenytoin treated initially with IV Valproic acid 500 BID and Phenytoin 100 TID now he is alert, taking PO, will resume Valproic acid 500mg PO BID and Phenytoin 100mg TID resume Keppra PO continue Decadron 4 mg IV twice daily DVT prophylaxis with Lovenox check Keppra level, Phenytoin level, Valproic acid level in the morning (2) Lung cancer metastatic to brain: Patient is previously refused any treatment for this Palliative care to work on hospice placement patient can now participate in the conversation he wants to go home his has concerns about being able to take care of him at home and does not want to expose their 17 yo son to his will need to speak with and palliative care and patient tomorrow Admission and Anticipated Discharge Date Admission Date: March 01, 2021 Subjective patient is now alert and oriented, he was able to eat today no seizure activity since he has been admitted he can now discuss what he wants and he would like to go home Dr. Corcoran reached out to his today to discuss this, his has concerns about taking care of him at home and their 17 yo son seeing him at home will change him back to oral anti-epileptics to make sure he is stable will discuss with family about home hospice as option as wanted to pursue SNF placement for palliative purposes Review of Systems Review of Systems: All systems reviewed & are unremarkable except as noted in Subjective Constitutional: + fatigue and + weakness; no fever Respiratory: no cough and no dyspnea Cardiovascular: no chest pain and no edema Gastrointestinal: no abdominal pain, no nausea, no vomiting, no constipation and no diarrhea/loose stools Neurologic: + generalized weakness; no seizure-like activity and no hea dache(s) Physical Exam Constitutional: well developed, + ill appearing and + frail appearing; no acute distress Neck: trachea midline, no thyromegaly Respiratory: normal respiratory effort, lungs clear to auscultation Cardiovascular: RRR, no murmur, no edema Gastrointestinal (Abdomen): normal bowel sounds, soft, nontender, no hepatosplenomegaly Musculoskeletal: Head/Neck/Chest: normocephalic, head atraumatic and neck supple Extremities: + abnormal strength (generalized weakness); + extremities abnormal to inspection (several fingers amputated) Skin: no rashes, warm and dry Neurologic: CN's II-XI intact bilaterally, deep tendon reflexes 2+ bilaterally, moves all extremities and awake; no focal motor deficits and not confused Psychiatric: A+Ox3, euthymic affect Lymphatic: no cervical or axillary lymphadenopathy Results & Data Results & Data ([facility]) Vital Signs (Past 12 Hours) Vital Signs Temp Pulse Resp BP Pulse Ox 03/03/21 07:57 37.0 C 67 16 169/100 H 96 Medications Administered Current Inpatient Medications Divalproex Sodium (Divalproex Extended Release 500 Mg Tab) 500 mg PO BID [facility] Stop: 04/02/21 20:59 Fentanyl (Fentanyl 12 Mcg/Hr Tdsy) 12 mcg TD Q3D@0900 [facility] Stop: 03/16/21 08:59 Last Admin: 03/02/21 09:22 Dose: 12 mcg Documented by: Dexamethasone 4 mg/ Syringe 1 mls @ 1 mls/min IV Q12 [facility] Stop: 03/31/21 16:59 Last Admin: 03/03/21 08:57 Dose: 1 mls/min Documented by: Lorazepam (Ativan) 1 mg in 2 mls @ 0.5 mls/min IV Q4H PRN PRN Reason: severe agitation Stop: 04/01/21 16:06 Levetiracetam (Levetiracetam 500 Mg Tab) 1,000 mg PO BID [facility] Stop: 04/02/21 20:59 Miscellaneous (Fentanyl Patch Remove & Waste) 1 ea N/A Q3D@0859 [facility] Stop: 04/01/21 08:58 Last Admin: 03/02/21 09:16 Dose: Not Given Documented by: Miscellaneous (Check Fentanyl Patch Placement) 1 ea N/A QS [facility] Stop: 03/31/21 16:43 Last Admin: 03/03/21 15:48 Dose: 1 ea Documented by: Morphine Sulfate (Morphine Sulfate 2 Mg/Ml Carp) 2 mg IV Q2H PRN PRN Reason: Pain Stop: 03/16/21 16:06 Ondansetron HCl (Ondansetron Inj 2 Mg/Ml 2 Ml Vial) 4 mg IV Q6H PRN PRN Reason: Nausea Stop: 03/31/21 16:43 Phenytoin Sodium (Phenytoin Sodium Er 100 Mg Cap) 100 mg PO TID [facility]ARGAR[facility] Stop: 04/02/21 20:59 PG Care Time/CCT Total # of Minutes Spent Total Time Spent with Patient: Total time spent is greater than 50% in coordination of care (as documented) at patient's floor/unit and/or counseling patient: Coding Level of Care Code 23712 Subseq Hosp Care Lvl 2 Diagnoses Epileptic seizure G40.909 Lung cancer metastatic to brain C34.90; C79.31
[2021-03-03] MEDS ORDERED: DIVALPROEX DELAY RELEASE 500 MG TAB PO SCH (21:00)
[2021-03-03] MEDS: PHENYTOIN SODIUM ER 100 MG CAP PO SCH (21:18)
[2021-03-03] MEDS: DIVALPROEX EXTENDED RELEASE 500 MG TAB PO SCH (21:18)
[2021-03-03] MEDS: levETIRAcetam 500 MG TAB PO SCH (21:18)
[2021-03-04] MEDS: CHECK fentaNYL PATCH PLACEMENT SCH ×3 (00:37→18:09)
[2021-03-04] MEDS: levETIRAcetam 500 MG TAB PO SCH ×2 (08:05→20:05)
[2021-03-04] MEDS: PHENYTOIN SODIUM ER 100 MG CAP PO SCH ×3 (08:08→20:04)
[2021-03-04] MEDS: dexAMETHasone 4 MG in SYRINGE 0 ML IV SCH ×2 (08:08→20:04)
[2021-03-04] MEDS: DIVALPROEX EXTENDED RELEASE 500 MG TAB PO SCH ×2 (08:08→20:04)
--- NOTE | 2021-03-04 12:48 | Palliative Care Progress Note ---
Date of Service March 04, 2021 Assessment & Plan (1) Palliative care encounter: Дмитрий has been repeatedly saying that he wants to go home though his is concerned about being able to provide care for him at home and the impact of him being at home on their teenage son. I talked with Дмитрий about this and suggested that at least in the short term, it may be helpful to have a stay at SNF for 24/7 care. Though he is confused at some points, he does understand the situation that he's in. He is agreeable to this. I spoke with Martina on the phone and updated her. She is relieved. She is trying to cope at home by doing chores for distraction. She is planning to come to see Дмитрий later today. I spoke with case management and Dr. Lyle (2) Lung cancer metastatic to brain: Admission and Anticipated Discharge Date Admission Date: March 01, 2021 Subjective Alert today but not thinking as clearly. He asks repeatedly "what does that mean?", even when not appropriate in conversation. He denies pain or dyspnea. Review of Systems Review of Systems: [place] Symptom Assessment Scale Pain 0/3 Dyspnea 0/3 Nausea0/3 Anxiety 1/3 Drowsiness 0/3 Palliative Performance Score 50% Physical Exam Constitutional: no acute distress ENMT: Mouth: + dry oral mucous membranes Respiratory: normal respiratory effort; no labored breathing Neurologic: + confused Results & Data ([facility]) Vital Signs (Past 12 Hours) Vital Signs Temp Pulse Resp BP Pulse Ox 03/04/21 07:40 98.8 F 80 16 130/78 94 PG Care Time/CCT Total # of Minutes Spent Total Time Spent with Patient: Total time spent is greater than 50% in coordination of care (as documented) at patient's floor/unit and/or counseling patient: total time spent 35 minutes with more than 50% of time spent on goals of care, family update and support, coordination of care Coding Level of Care Code 87210 Subseq Hosp Care Lvl 3 Diagnoses Palliative care encounter Z51.5 Lung cancer metastatic to brain C34.90; C79.31
--- NOTE | 2021-03-04 23:54 | Hospitalist Progress Note ---
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 (2) Lung cancer metastatic to brain: Patient is previously refused any treatment for this Palliative care to work on hospice placement patient can now participate in the conversation he wants to go home his has concerns about being able to take care of him at home and does not want to expose their 17 yo son to his although he wants to go home, he is confused, poor short term memory concerns about family being able to provide all his care working on SNF hospice placement Admission and Anticipated Discharge Date Admission Date: March 01, 2021 Subjective patient is awake but after speaking with him at length it is clear that he has confusion he cannot remember things we just discussed he does keep stating that he would want to go home however, due to his confusion and weakened state his feels she cannot care for him case management working on placement at SNF discussed with Dr. Corcoran, appreciate her input Review of Systems Review of Systems: All systems reviewed & are unremarkable except as noted in Subjective Neurologic: + confusion; no seizure-like activity and no headache(s) Physical Exam Constitutional: well developed, + ill appearing and + frail appearing; no acute distress Neck: trachea midline, no thyromegaly Respiratory: normal respiratory effort, lungs clear to auscultation Cardiovascular: RRR, no murmur, no edema Gastrointestinal (Abdomen): normal bowel sounds, soft, nontender, no hepatosplenomegaly Musculoskeletal: Head/Neck/Chest: normocephalic, head atraumatic and neck supple Extremities: + abnormal strength (generalized weakness); + extremities abnormal to inspection (several fingers amputated) Skin: no rashes, warm and dry Neurologic: CN's II-XI intact bilaterally, deep tendon reflexes 2+ bilaterally, moves all extremities, awake and + confused (poor short term memory, does not know what hospital he is in); no focal motor deficits Psychiatric: Orientation: alert, oriented to person and cooperative; + not oriented to place and + not oriented to time Lymphatic: no cervical or axillary lymphadenopathy Results & Data Results & Data ([facility]) Vital Signs (Past 12 Hours) Vital Signs Temp Pulse Resp BP Pulse Ox 03/04/21 14:57 37.6 C H 74 18 158/86 H 93 Medications Administered Current Inpatient Medications Divalproex Sodium (Divalproex Extended Release 500 Mg Tab) 500 mg PO BID [facility] Stop: 04/02/21 20:59 Last Admin: 03/04/21 20:04 Dose: 500 mg Documented by: Fentanyl (Fentanyl 12 Mcg/Hr Tdsy) 12 mcg TD Q3D@0900 [facility] Stop: 03/16/21 08:59 Last Admin: 03/02/21 09:22 Dose: 12 mcg Documented by: Dexamethasone 4 mg/ Syringe 1 mls @ 1 mls/min IV Q12 [facility] Stop: 03/31/21 16:59 Last Admin: 03/04/21 20:04 Dose: 1 mls/min Documented by: Lorazepam (Ativan) 1 mg in 2 mls @ 0.5 mls/min IV Q4H PRN PRN Reason: severe agitation Stop: 04/01/21 16:06 Levetiracetam (Levetiracetam 500 Mg Tab) 1,000 mg PO BID [facility] Stop: 04/02/21 20:59 Last Admin: 03/04/21 20:05 Dose: 1,000 mg Documented by: Miscellaneous (Fentanyl Patch Remove & Waste) 1 ea N/A Q3D@0859 [facility] Stop: 04/01/21 08:58 Last Admin: 03/02/21 09:16 Dose: Not Given Documented by: Miscellaneous (Check Fentanyl Patch Placement) 1 ea N/A QS [facility] Stop: 03/31/21 16:43 Last Admin: 03/05/21 00:38 Dose: 1 ea Documented by: Morphine Sulfate (Morphine Sulfate 2 Mg/Ml Carp) 2 mg IV Q2H PRN PRN Reason: Pain Stop: 03/16/21 16:06 Last Admin: 03/05/21 05:45 Dose: 2 mg Documented by: Ondansetron HCl (Ondansetron Inj 2 Mg/Ml 2 Ml Vial) 4 mg IV Q6H PRN PRN Reason: Nausea Stop: 03/31/21 16:43 Phenytoin Sodium (Phenytoin Sodium Er 100 Mg Cap) 100 mg PO TID [facility] Stop: 04/02/21 20:59 Last Admin: 03/04/21 20:04 Dose: 100 mg Documented by: PG Care Time/CCT Total # of Minutes Spent Total Time Spent with Patient: Total time spent is greater than 50% in coordination of care (as documented) at patient's floor/unit and/or counseling patient: Coding Level of Care Code 73179 Subseq Hosp Care Lvl 2 Diagnoses Epileptic seizure G40.909 Lung cancer metastatic to brain C34.90; C79.31
[2021-03-05] MEDS: CHECK fentaNYL PATCH PLACEMENT SCH ×3 (00:38→16:06)
[2021-03-05] MEDS: MoRPHine SULFATE 2 MG/ML CARP IV PRN ×5 (05:45→23:48)
[2021-03-05] MEDS: PHENYTOIN SODIUM ER 100 MG CAP PO SCH ×3 (08:01→20:53)
[2021-03-05] MEDS: levETIRAcetam 500 MG TAB PO SCH ×2 (08:01→20:53)
[2021-03-05] MEDS: dexAMETHasone 4 MG in SYRINGE 0 ML IV SCH ×2 (08:01→20:54)
[2021-03-05] MEDS: DIVALPROEX EXTENDED RELEASE 500 MG TAB PO SCH ×2 (08:02→20:53)
[2021-03-05] MEDS: fentaNYL 12 MCG/HR TDSY TD SCH (09:41)
--- NOTE | 2021-03-05 12:23 | Hospitalist Progress Note ---
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, CT scan reveals vasogenic edema Patient was also subtherapeutic on valproic acid and phenytoin treated initially with IV Valproic acid 500 BID and Phenytoin 100 TID now he is alert, taking PO, will continue Valproic acid 500mg PO BID and Phenytoin 100mg TID continue Keppra PO continue Decadron 4 mg IV twice daily, change to PO on discharge DVT prophylaxis with Lovenox (2) Lung cancer metastatic to brain: Patient is previously refused any treatment for this Palliative care to work on hospice placement patient can now participate in the conversation he wants to go home his has concerns about being able to take care of him at home and does not want to expose their 17 yo son to his although he wants to go home, he is confused, poor short term memory concerns about family being able to provide all his care working on SNF hospice placement but won't happen until next week (3) Back pain: unsure if he has bone mets will increase Fentanyl and add PRN Oxycodone Admission and Anticipated Discharge Date Admission Date: March 01, 2021 Subjective no seizures he says his back hurts more today, says it is really painful, will increase Fentanyl can try some Oxycodone for breakthrough pain d/w CM, no facility can take him until next week Review of Systems Review of Systems: All systems reviewed & are unremarkable except as noted in Subjective Physical Exam Constitutional: well developed, + ill appearing and + frail appearing; no acute distress Neck: trachea midline, no thyromegaly Respiratory: normal respiratory effort, lungs clear to auscultation Cardiovascular: RRR, no murmur, no edema Gastrointestinal (Abdomen): normal bowel sounds, soft, nontender, no hepatosplenomegaly Musculoskeletal: Head/Neck/Chest: normocephalic, head atraumatic and neck supple Extremities: + abnormal strength (generalized weakness); + extremities abnormal to inspection (several fingers amputated) Skin: no rashes, warm and dry Neurologic: CN's II-XI intact bilaterally, deep tendon reflexes 2+ bilaterally, moves all extremities, awake and + confused (poor short term memory, does not know what hospital he is in); no focal motor deficits Psychiatric: A+Ox3, euthymic affect Orientation: alert, oriented to person and cooperative; + not oriented to place and + not oriented to time Lymphatic: no cervical or axillary lymphadenopathy Results & Data Results & Data ([facility]) Vital Signs (Past 12 Hours) Vital Signs Temp Pulse Pulse Resp BP BP Pulse Ox 03/05/21 11:35 37.2 C 62 16 126/85 93 03/05/21 07:54 37.2 C 64 16 127/86 92 03/05/21 07:23 37.2 C 70 20 150/80 H 92 Medications Administered Current Inpatient Medications Divalproex Sodium (Divalproex Extended Release 500 Mg Tab) 500 mg PO BID [facility] Stop: 04/02/21 20:59 Last Admin: 03/05/21 08:02 Dose: 500 mg Documented by: Fentanyl (Fentanyl 12 Mcg/Hr Tdsy) 12 mcg TD Q3D@0900 [facility] Stop: 03/16/21 08:59 Last Admin: 03/05/21 09:41 Dose: 12 mcg Documented by: Dexamethasone 4 mg/ Syringe 1 mls @ 1 mls/min IV Q12 [facility] Stop: 03/31/21 16:59 Last Admin: 03/05/21 08:01 Dose: 1 mls/min Documented by: Lorazepam (Ativan) 1 mg in 2 mls @ 0.5 mls/min IV Q4H PRN PRN Reason: severe agitation Stop: 04/01/21 16:06 Levetiracetam (Levetiracetam 500 Mg Tab) 1,000 mg PO BID [facility] Stop: 04/02/21 20:59 Last Admin: 03/05/21 08:01 Dose: 1,000 mg Documented by: Miscellaneous (Fentanyl Patch Remove & Waste) 1 ea N/A Q3D@0859 [facility] Stop: 04/01/21 08:58 Last Admin: 03/05/21 09:41 Dose: 1 ea Documented by: Miscellaneous (Check Fentanyl Patch Placement) 1 ea N/A QS [facility] Stop: 03/31/21 16:43 Last Admin: 03/05/21 07:26 Dose: 1 ea Documented by: Morphine Sulfate (Morphine Sulfate 2 Mg/Ml Carp) 2 mg IV Q2H PRN PRN Reason: Pain Stop: 03/16/21 16:06 Last Admin: 03/05/21 11:10 Dose: 2 mg Documented by: Ondansetron HCl (Ondansetron Inj 2 Mg/Ml 2 Ml Vial) 4 mg IV Q6H PRN PRN Reason: Nausea Stop: 03/31/21 16:43 Phenytoin Sodium (Phenytoin Sodium Er 100 Mg Cap) 100 mg PO TID [facility] Stop: 04/02/21 20:59 Last Admin: 03/05/21 08:01 Dose: 100 mg Documented by: PG Care Time/CCT Total # of Minutes Spent Total Time Spent with Patient: Total time spent is greater than 50% in coordination of care (as documented) at patient's floor/unit and/or counseling patient: Coding Level of Care Code 94400 Subseq Hosp Care Lvl 2 Diagnoses Epileptic seizure G40.909 Lung cancer metastatic to brain C34.90; C79.31 Back pain M54.9
[2021-03-05] MEDS: fentaNYL 25 MCG/HR TDSY TD SCH (13:33)
[2021-03-05] MEDS: oxyCODONE HCL IR 5 MG TAB (IMMEDIATE RELEASE) PO PRN ×2 (16:04→20:59)
[2021-03-06] MEDS: CHECK fentaNYL PATCH PLACEMENT SCH ×3 (00:55→15:36)
[2021-03-06] MEDS: oxyCODONE HCL IR 5 MG TAB (IMMEDIATE RELEASE) PO PRN ×4 (03:12→19:17)
[2021-03-06] MEDS: MoRPHine SULFATE 2 MG/ML CARP IV PRN ×2 (04:41→15:10)
[2021-03-06] MEDS: DIVALPROEX EXTENDED RELEASE 500 MG TAB PO SCH ×2 (09:29→20:51)
[2021-03-06] MEDS: PHENYTOIN SODIUM ER 100 MG CAP PO SCH ×3 (09:30→20:51)
[2021-03-06] MEDS: levETIRAcetam 500 MG TAB PO SCH ×2 (09:30→20:50)
[2021-03-06] MEDS: dexAMETHasone 4 MG in SYRINGE 0 ML IV SCH ×2 (09:33→20:50)
--- NOTE | 2021-03-06 14:23 | Hospitalist Progress Note ---
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, CT scan reveals vasogenic edema Patient was also subtherapeutic on valproic acid and phenytoin treated initially with IV Valproic acid 500 BID and Phenytoin 100 TID now he is alert, taking PO, will continue Valproic acid 500mg PO BID and Phenytoin 100mg TID continue Keppra PO continue Decadron 4 mg IV twice daily, change to PO on discharge DVT prophylaxis with Lovenox (2) Lung cancer metastatic to brain: Patient is previously refused any treatment for this Palliative care to work on hospice placement patient can now participate in the conversation he wants to go home his has concerns about being able to take care of him at home and does not want to expose their 17 yo son to his although he wants to go home, he is confused, poor short term memory concerns about family being able to provide all his care working on SNF hospice placement but won't happen until next week (3) Back pain: unsure if he has bone mets more relief with Fentanyl 25mcg and PRN Oxycodone Admission and Anticipated Discharge Date Admission Date: March 01, 2021 Subjective patient is sleeping, more comfortable today updated his at the bedside she showed me his medication list, he was on Fentanyl 25mcg at home, makes sense why he was in pain on only the 12mcg patch she agrees with SNF placement next week Review of Systems Review of Systems: Unobtainable due to reduced consciousness Physical Exam Constitutional: well developed, + frail appearing and + lethargic; no acute distress Neck: trachea midline, no thyromegaly Respiratory: normal respiratory effort, lungs clear to auscultation Cardiovascular: RRR, no murmur, no edema Gastrointestinal (Abdomen): normal bowel sounds, soft, nontender, no hepatosplenomegaly Musculoskeletal: Head/Neck/Chest: normocephalic, head atraumatic and neck supple Extremities: + abnormal strength (generalized weakness); + extremities abnormal to inspection (several fingers amputated) Skin: no rashes, warm and dry Neurologic: CN's II-XI intact bilaterally, deep tendon reflexes 2+ bilaterally, moves all extremities, awake and + confused (poor short term memory, does not know what hospital he is in); no focal motor deficits Lymphatic: no cervical or axillary lymphadenopathy Results & Data Results & Data ([facility]) Vital Signs (Past 12 Hours) Vital Signs Temp Pulse Resp BP Pulse Ox 03/06/21 07:20 36.4 C L 56 L 16 128/82 96 Medications Administered Current Inpatient Medications Divalproex Sodium (Divalproex Extended Release 500 Mg Tab) 500 mg PO BID [facility] Stop: 04/02/21 20:59 Last Admin: 03/06/21 09:29 Dose: 500 mg Documented by: Fentanyl (Fentanyl 25 Mcg/Hr Tdsy) 25 mcg TD Q3D@1330 [facility] Stop: 03/19/21 13:29 Last Admin: 03/05/21 13:33 Dose: 25 mcg Documented by: Dexamethasone 4 mg/ Syringe 1 mls @ 1 mls/min IV Q12 [facility] Stop: 03/31/21 16:59 Last Admin: 03/06/21 09:33 Dose: 1 mls/min Documented by: Lorazepam (Ativan) 1 mg in 2 mls @ 0.5 mls/min IV Q4H PRN PRN Reason: severe agitation Stop: 04/01/21 16:06 Levetiracetam (Levetiracetam 500 Mg Tab) 1,000 mg PO BID [facility] Stop: 04/02/21 20:59 Last Admin: 03/06/21 09:30 Dose: 1,000 mg Documented by: Miscellaneous (Check Fentanyl Patch Placement) 1 ea N/A QS [facility] Stop: 03/31/21 16:43 Last Admin: 03/06/21 09:29 Dose: 1 ea Documented by: Miscellaneous (Fentanyl Patch Remove & Waste) 1 ea N/A Q3D@1329 [facility] Stop: 04/07/21 13:28 Morphine Sulfate (Morphine Sulfate 2 Mg/Ml Carp) 2 mg IV Q2H PRN PRN Reason: Pain Stop: 03/16/21 16:06 Last Admin: 03/06/21 04:41 Dose: 2 mg Documented by: Ondansetron HCl (Ondansetron Inj 2 Mg/Ml 2 Ml Vial) 4 mg IV Q6H PRN PRN Reason: Nausea Stop: 03/31/21 16:43 Oxycodone HCl (Oxycodone Hcl Ir 5 Mg Tab (Immediate Release)) 5 mg PO Q4 PRN PRN Reason: Pain Stop: 03/19/21 12:22 Last Admin: 03/06/21 13:56 Dose: 5 mg Documented by: Phenytoin Sodium (Phenytoin Sodium Er 100 Mg Cap) 100 mg PO TID [facility] Stop: 04/02/21 20:59 Last Admin: 03/06/21 13:54 Dose: 100 mg Documented by: PG Care Time/CCT Total # of Minutes Spent Total Time Spent with Patient: Total time spent is greater than 50% in coordination of care (as documented) at patient's floor/unit and/or counseling patient: Coding Level of Care Code 12270 Subseq Hosp Care Lvl 2 Diagnoses Epileptic seizure G40.909 Lung cancer metastatic to brain C34.90; C79.31 Back pain M54.9
[2021-03-07] MEDS: CHECK fentaNYL PATCH PLACEMENT SCH ×4 (00:51→23:00)
[2021-03-07] MEDS: oxyCODONE HCL IR 5 MG TAB (IMMEDIATE RELEASE) PO PRN ×4 (05:31→18:04)
[2021-03-07] MEDS: DIVALPROEX EXTENDED RELEASE 500 MG TAB PO SCH ×2 (08:36→20:31)
[2021-03-07] MEDS: levETIRAcetam 500 MG TAB PO SCH ×2 (08:37→20:31)
[2021-03-07] MEDS: PHENYTOIN SODIUM ER 100 MG CAP PO SCH ×3 (08:37→20:31)
[2021-03-07] MEDS: dexAMETHasone 4 MG in SYRINGE 0 ML IV SCH ×2 (08:38→20:32)
--- NOTE | 2021-03-07 12:56 | Hospitalist Progress Note ---
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, CT scan reveals vasogenic edema Patient was also subtherapeutic on valproic acid and phenytoin treated initially with IV Valproic acid 500 BID and Phenytoin 100 TID now he is alert, taking PO, will continue Valproic acid 500mg PO BID and Phenytoin 100mg TID continue Keppra PO continue Decadron 4 mg IV twice daily, change to PO on discharge DVT prophylaxis with Lovenox while here (2) Lung cancer metastatic to brain: Patient is previously refused any treatment for this Palliative care to work on hospice placement patient can now participate in the conversation he wants to go home his has concerns about being able to take care of him at home and does not want to expose their 17 yo son to his although he wants to go home, he is confused, poor short term memory concerns about family being able to provide all his care working on SNF hospice placement but won't happen over the weekend or holiday (3) Back pain: unsure if he has bone mets more relief with Fentanyl 25mcg and PRN Oxycodone Admission and Anticipated Discharge Date Admission Date: March 01, 2021 Subjective patient doing well, back pain is better on the 25mcg patch but still having some breakthrough pain, requesting Oxycodone breathing well, no chest pain, vitals stable no seizure activity just here waiting for SNF placement for hospice care Review of Systems Review of Systems: All systems reviewed & are unremarkable except as noted in Subjective Physical Exam Constitutional: well developed, + frail appearing and + lethargic; no acute distress Neck: trachea midline, no thyromegaly Respiratory: normal respiratory effort, lungs clear to auscultation Cardiovascular: RRR, no murmur, no edema Gastrointestinal (Abdomen): normal bowel sounds, soft, nontender, no hepatosplenomegaly Musculoskeletal: Head/Neck/Chest: normocephalic, head atraumatic and neck supple Extremities: + abnormal strength (generalized weakness); + extremities abnormal to inspection (several fingers amputated) Skin: no rashes, warm and dry Neurologic: CN's II-XI intact bilaterally, deep tendon reflexes 2+ bilaterally, moves all extremities, awake and + confused (poor short term memory, does not know what hospital he is in); no focal motor deficits Psychiatric: Orientation: alert, oriented to person and cooperative; + not oriented to place and + not oriented to time Lymphatic: no cervical or axillary lymphadenopathy Results & Data Results & Data ([facility]) Vital Signs (Past 12 Hours) Vital Signs Temp Pulse Resp BP Pulse Ox 03/07/21 07:20 36.8 C 55 L 16 126/69 96 Medications Administered Current Inpatient Medications Divalproex Sodium (Divalproex Extended Release 500 Mg Tab) 500 mg PO BID [facility] Stop: 04/02/21 20:59 Last Admin: 03/07/21 08:36 Dose: 500 mg Documented by: Fentanyl (Fentanyl 25 Mcg/Hr Tdsy) 25 mcg TD Q3D@1330 [facility] Stop: 03/19/21 13:29 Last Admin: 03/05/21 13:33 Dose: 25 mcg Documented by: Dexamethasone 4 mg/ Syringe 1 mls @ 1 mls/min IV Q12 [facility] Stop: 03/31/21 16:59 Last Admin: 03/07/21 08:38 Dose: 1 mls/min Documented by: Lorazepam (Ativan) 1 mg in 2 mls @ 0.5 mls/min IV Q4H PRN PRN Reason: severe agitation Stop: 04/01/21 16:06 Levetiracetam (Levetiracetam 500 Mg Tab) 1,000 mg PO BID [facility] Stop: 04/02/21 20:59 Last Admin: 03/07/21 08:37 Dose: 1,000 mg Documented by: Miscellaneous (Check Fentanyl Patch Placement) 1 ea N/A QS [facility] Stop: 03/31/21 16:43 Last Admin: 03/07/21 08:36 Dose: 1 ea Documented by: Miscellaneous (Fentanyl Patch Remove & Waste) 1 ea N/A Q3D@1329 [facility] Stop: 04/07/21 13:28 Morphine Sulfate (Morphine Sulfate 2 Mg/Ml Carp) 2 mg IV Q2H PRN PRN Reason: Pain Stop: 03/16/21 16:06 Last Admin: 03/06/21 15:10 Dose: 2 mg Documented by: Ondansetron HCl (Ondansetron Inj 2 Mg/Ml 2 Ml Vial) 4 mg IV Q6H PRN PRN Reason: Nausea Stop: 03/31/21 16:43 Oxycodone HCl (Oxycodone Hcl Ir 5 Mg Tab (Immediate Release)) 5 mg PO Q4 PRN PRN Reason: Pain Stop: 03/19/21 12:22 Last Admin: 03/07/21 09:39 Dose: 5 mg Documented by: Phenytoin Sodium (Phenytoin Sodium Er 100 Mg Cap) 100 mg PO TID [facility] Stop: 04/02/21 20:59 Last Admin: 03/07/21 08:37 Dose: 100 mg Documented by: PG Care Time/CCT Total # of Minutes Spent Total Time Spent with Patient: Total time spent is greater than 50% in coordination of care (as documented) at patient's floor/unit and/or counseling patient: Coding Level of Care Code 90690 Subseq Hosp Care Lvl 2 Diagnoses Epileptic seizure G40.909 Lung cancer metastatic to brain C34.90; C79.31 Back pain M54.9
[2021-03-08] MEDS: oxyCODONE HCL IR 5 MG TAB (IMMEDIATE RELEASE) PO PRN ×2 (01:59→05:58)
[2021-03-08] MEDS: MoRPHine SULFATE 2 MG/ML CARP IV PRN ×3 (07:15→16:03)
[2021-03-08] MEDS: CHECK fentaNYL PATCH PLACEMENT SCH ×3 (07:17→23:40)
[2021-03-08] MEDS: PHENYTOIN SODIUM ER 100 MG CAP PO SCH ×3 (09:01→20:16)
[2021-03-08] MEDS: dexAMETHasone 4 MG in SYRINGE 0 ML IV SCH ×2 (09:01→20:16)
[2021-03-08] MEDS: DIVALPROEX EXTENDED RELEASE 500 MG TAB PO SCH ×2 (09:01→20:16)
[2021-03-08] MEDS: levETIRAcetam 500 MG TAB PO SCH ×2 (09:01→20:16)
--- NOTE | 2021-03-08 09:04 | Hospitalist Progress Note ---
Date of Service March 08, 2021 Assessment & Plan (1) Epileptic seizure: * Likely secondary to metastasis x2 in brain * CT scan reveals vasogenic edema * ==> Continuing on Decadron 4 mg IV twice daily -- change to PO on discharge * Of note, patient was also subtherapeutic on valproic acid and phenytoin--> Phenytoin 3.9, Valproic Acid 20 * treated initially with IV Valproic acid 500 BID and Phenytoin 100 TID * Now that awake,alert -- continue valproic acid 500mg BID, Phenytoin 100mg TID, Keppra 1g BID PO * DVT prophylaxis with Lovenox while here (2) Lung cancer metastatic to brain: * Patient is previously refused any treatment for this * Palliative care to work on hospice placement * patient can now participate in the conversation he wants to go home * his has concerns about being able to take care of him at home and does not want to expose their 17 yo son to his * although he wants to go home, he is confused, poor short term memory * concerns about family being able to provide all his care * working on SNF hospice placement but won't happen over the weekend or holiday (3) Back pain: * unsure if he has bone mets, no further work-up at this time. Would not be surprised if metastatic disease given pain, primarily in back * more relief with Fentanyl 25mcg and PRN Oxycodone * -->Of note, patient only got 5+5mg oxycodone and morphine x 1 since yesterday until this morning and could be playing catch-up currently * -- Increased oxycodone to 10mg prn * --Added roxanol 10mg prn to see if helpful for at discharge * --Consider increased fentanyl patch if needed to get better control (4) Hypertension: * BP 120/67 * Holding amlodipine 5mg daily -- likely can d/c at discharge (5) DVT prophylaxis: * Lovenox while inpatient Dispo: continued inpatient stay awaiting SNF with transition to hospice at discharge Admission and Anticipated Discharge Date Admission Date: March 01, 2021 Subjective Patient evaluated around lunch time. Had only gotten 5mg oxycodone and morphine x 1 since last evening and had increased pain this morning. Did get increased dose of oxycodone and morphine this morning with some relief but at lunch time up and stating pain "all over", worse in his back. Discussed with metastatic disease would not be surprised if he had mets to the bone. Discussed with palliative and ordered roxanol to see if help and can continue at d/c. Requesting dose of roxanol currently -- if ineffective to let nursing know and will consider increased dose of fentanyl patch -- patient stated that would be much appreciated as the "pain sucks" and he didn't get much sleep last night secondary to pain. No fever, chills, chest pain, shortness of breath, abdominal pain, nausea or vomiting. Not much of an appetite due to pain and hopefully with better control will improve. Questions/concerns addressed at this time. Review of Systems Review of Systems: All systems reviewed & are unremarkable except as noted in HPI & below Physical Exam Constitutional: well developed, + frail appearing and + lethargic; no acute distress Eyes: + anicteric sclerae and PERRL ENMT: dry mm Neck: trachea midline, no thyromegaly Respiratory: normal respiratory effort; no respiratory distress, no cough and not tachypneic Auscultation: + diminished lung sounds (bases); no crackles and no wheezes Cardiovascular: RRR, no murmur, no edema Gastrointestinal (Abdomen): normal bowel sounds, soft, nontender, no hepatosplenomegaly Musculoskeletal: Head/Neck/Chest: normocephalic, head atraumatic and neck supple Extremities: + abnormal strength (generalized weakness); + extremities abnormal to inspection (several fingers amputated) Skin: no rashes, warm and dry Neurologic: CN's II-XI intact bilaterally, deep tendon reflexes 2+ bilaterally, moves all extremities, awake and + confused (poor short term memory ); no focal motor deficits Psychiatric: Orientation: alert, oriented to person, oriented to place and cooperative; + not oriented to time Lymphatic: no cervical or axillary lymphadenopathy Results & Data Results & Data ([facility]) Vital Signs (Past 12 Hours) Vital Signs Temp Pulse Resp BP Pulse Ox 03/08/21 07:09 36.7 C 56 L 16 120/67 95 Laboratory Results 03/08/21 03/08/21 Range/Units 10:21 10:21 WBC 10.54 (4.8-10.8) K/uL RBC 4.39 L (4.7-6.1) M/uL Hgb 14.1 (14.0-18.0) g/dL Hct 41.7 L (42-52) % MCV 95.0 (80-100) fL MCH 32.1 (25-34) pg MCHC 33.8 (32-36) g/dL RDW Std Deviation 48.6 H (36.4-46.3) fL RDW Coeff of Keny 14.0 (11.5-14.5) % Plt Count 231 (130-400) K/uL MPV 11.0 H (7.4-10.4) fL Sodium 135 L (136-145) mmol/L Potassium 3.7 (3.5-5.1) mmol/L Chloride 101 (98-107) mmol/L Carbon Dioxide 28 (21-32) mmol/L Anion Gap 5.0 (3-11) BUN 17 (7-18) mg/dl Creatinine 0.71 (0.6-1.4) mg/dl Est Cr Clr Drug Dosing 103.7 ml/min Est GFR ( Amer) 114.1 ml/min Est GFR (Non-Af Amer) 98.5 ml/min BUN/Creatinine Ratio 24.3 H (10-20) Glucose 100 H (70-99) mg/dl Calcium 8.9 (8.5-10.1) mg/dl PG Care Time/CCT Total # of Minutes Spent Total Time Spent with Patient: Total time spent is greater than 50% in coordination of care (as documented) at patient's floor/unit and/or counseling patient: Coding Level of Care Code 21771 Subseq Hosp Care Lvl 3 Diagnoses Epileptic seizure G40.909 Lung cancer metastatic to brain C34.90; C79.31 Back pain M54.9 Hypertension I10 DVT prophylaxis Z29.9
[2021-03-08] MEDS ORDERED: oxyCODONE HCL IR 5 MG TAB (IMMEDIATE RELEASE) PO PRN (09:23)
[2021-03-08 10:30] LABS: Hematocrit (blood only) 41.7 % (42-52); Hemoglobin 14.1 g/dL (14.0-18.0); Mean Corpuscular Hemoglobin 32.1 pg (25-34); Mean Corpuscular Hgb Conc 33.8 g/dL (32-36); Platelet Count 231 K/uL (130-400); RDW Standard Deviation 48.6 fL (36.4-46.3); Red Blood Count 4.39 M/uL (4.7-6.1); White Blood Count 10.54 K/uL (4.8-10.8)
[2021-03-08 10:57] LABS: BUN Creatinine Ratio 24.3 (10-20); Calcium 8.9 mg/dl (8.5-10.1); Creatinine Clr Calc Pharmacy 103.7 ml/min; Est GFR (African American) 114.1 ml/min; Est GFR (Non-African American) 98.5 ml/min; Potassium 3.7 mmol/L (3.5-5.1)
[2021-03-08] MEDS: MoRPHine SULFATE 10 MG/0.5 ML UDP PO PRN ×4 (12:42→19:20)
[2021-03-08] MEDS: fentaNYL 25 MCG/HR TDSY TD SCH (13:36)
[2021-03-08] MEDS ORDERED: fentaNYL 50 MCG/HR TDSY TD SCH (15:30)
[2021-03-09] MEDS: CHECK fentaNYL PATCH PLACEMENT SCH ×3 (07:31→23:02)
[2021-03-09] MEDS: levETIRAcetam 500 MG TAB PO SCH ×2 (09:25→20:19)
[2021-03-09] MEDS: DIVALPROEX EXTENDED RELEASE 500 MG TAB PO SCH ×2 (09:26→20:19)
[2021-03-09] MEDS: MoRPHine SULFATE 10 MG/0.5 ML UDP PO PRN ×5 (09:26→20:18)
[2021-03-09] MEDS: PHENYTOIN SODIUM ER 100 MG CAP PO SCH ×3 (09:26→20:20)
[2021-03-09] MEDS: dexAMETHasone 4 MG in SYRINGE 0 ML IV SCH ×2 (10:17→20:19)
--- NOTE | 2021-03-09 11:26 | Hospitalist Progress Note ---
Date of Service March 09, 2021 Assessment & Plan (1) Epileptic seizure: * Likely secondary to metastasis x2 in brain * CT scan reveals vasogenic edema * ==> Continuing on Decadron 4 mg IV twice daily -- change to PO on discharge * Of note, patient was also subtherapeutic on valproic acid and phenytoin--> Phenytoin 3.9, Valproic Acid 20 * treated initially with IV Valproic acid 500 BID and Phenytoin 100 TID * Now that awake,alert -- continue valproic acid 500mg BID, Phenytoin 100mg TID, Keppra 1g BID PO * DVT prophylaxis with Lovenox while here (2) Lung cancer metastatic to brain: * Patient is previously refused any treatment for this * Palliative care to work on hospice placement * patient can now participate in the conversation he wants to go home * his has concerns about being able to take care of him at home and does not want to expose their 17 yo son to his * although he wants to go home, he is confused, poor short term memory * concerns about family being able to provide all his care * working on SNF hospice placement but won't happen over the weekend or holiday (3) Back pain: * unsure if he has bone mets, no further work-up at this time. Would not be surprised if metastatic disease given pain, primarily in back * Seems more comfortable despite increased pain rating * Increased fentanyl to 50mcg daily (expect shields effect tomorrow) -- continue at d/c * Roxanol 10mg Q2H PO prn -- continue at d/c (4) Hypertension: * BP 148/79 * Resumed amlodipine 5mg daily * Continue to monitor (5) DVT prophylaxis: * Lovenox while inpatient Dispo: continued inpatient stay d/c on Hospice tomorrow planned if pain controlled with changes as above Admission and Anticipated Discharge Date Admission Date: March 01, 2021 Subjective Patient evaluated this morning. Did get some sleep last night for the first time in a while. Discussed continuing with Fentanyl patch 50mcg and will see more effect hopefully tomorrow. Pain still present and patient states "it sucks" with regards to his current medical status. Discussed [facility] with bed today, however patient would like to monitor another night to ensure increased dose and prns effective at control prior to discharge. Passing lots of gas but no BM today. Will order bowel regimen to keep regular while on pain medications. Of note he has a high tolerance and was on larger doses of pain medications in the past without issue. No fever, chills, chest pain, shortness of breath, abdominal pain, nausea, vomiting or dysuria. Review of Systems Review of Systems: All systems reviewed & are unremarkable except as noted in HPI & below Physical Exam Constitutional: well developed, + frail appearing, cooperative and comfortable; no acute distress Eyes: + anicteric sclerae and PERRL ENMT: mmm Neck: trachea midline, no thyromegaly Respiratory: normal respiratory effort; no respiratory distress, no cough and not tachypneic Auscultation: + diminished lung sounds (bases); no crackles and no wheezes Cardiovascular: RRR, no murmur, no edema Gastrointestinal (Abdomen): normal bowel sounds, soft, nontender, no hepatosplenomegaly Musculoskeletal: Head/Neck/Chest: normocephalic, head atraumatic and neck supple Extremities: + abnormal strength (generalized weakness); + extremities abnormal to inspection (several fingers amputated) Skin: no rashes, warm and dry Neurologic: CN's II-XI intact bilaterally, deep tendon reflexes 2+ bilaterally, moves all extremities and awake; no focal motor deficits and not confused Psychiatric: Orientation: alert, oriented to person, oriented to place and cooperative; + not oriented to time Lymphatic: no cervical or axillary lymphadenopathy Results & Data Results & Data ([facility]) Vital Signs (Past 12 Hours) Vital Signs Temp Pulse Resp BP Pulse Ox 03/09/21 07:23 36.6 C 58 L 17 148/79 H 94 PG Care Time/CCT Total # of Minutes Spent Total Time Spent with Patient: Total time spent is greater than 50% in coordination of care (as documented) at patient's floor/unit and/or counseling patient: Coding Level of Care Code 19483 Subseq Hosp Care Lvl 3 Diagnoses Epileptic seizure G40.909 Lung cancer metastatic to brain C34.90; C79.31 Back pain M54.9 Hypertension I10 DVT prophylaxis Z29.9
[2021-03-09] MEDS: DOCUSATE SODIUM/SENNA 50/8.6MG TAB PO SCH (11:50)
[2021-03-09] MEDS: POLYETHYLENE (MIRALAX) 17 GM PACK PO SCH (11:50)
[2021-03-09] MEDS: amLODIPine BESYLATE 5 MG TAB PO SCH (12:15)
[2021-03-09] MEDS ORDERED: diphenhydrAMINE 50 MG/ML VIAL IV STA (15:57)
[2021-03-10] MEDS: MoRPHine SULFATE 10 MG/0.5 ML UDP PO PRN ×4 (07:44→16:30)
[2021-03-10] MEDS: CHECK fentaNYL PATCH PLACEMENT SCH ×2 (07:46→15:00)
[2021-03-10] MEDS: dexAMETHasone 4 MG in SYRINGE 0 ML IV SCH (07:48)
[2021-03-10] MEDS: amLODIPine BESYLATE 5 MG TAB PO SCH (07:48)
[2021-03-10] MEDS: DIVALPROEX EXTENDED RELEASE 500 MG TAB PO SCH (07:49)
[2021-03-10] MEDS: DOCUSATE SODIUM/SENNA 50/8.6MG TAB PO SCH (07:50)
[2021-03-10] MEDS: levETIRAcetam 500 MG TAB PO SCH (07:51)
[2021-03-10] MEDS: PHENYTOIN SODIUM ER 100 MG CAP PO SCH ×2 (07:52→14:22)
[2021-03-10] MEDS: POLYETHYLENE (MIRALAX) 17 GM PACK PO SCH (08:02)
--- NOTE | 2021-03-10 08:55 | Discharge Summary ---
Date of Service March 10, 2021 Admission HPI Per Admitting Provider This is a 65-year-old male with past medical history of non-small cell lung carcinoma, metastatic to the brain that presents status post seizure. Patient is obtunded and unable to provide any history. History is therefore per ER documentation. It appears the patient has a recent diagnosis of lung cancer with mets to the brain, head initially been followed at [facility]. Was referred to [place] for gamma knife treatment secondary to brain mets. Per documentation, it sounds like the patient had ultimately refused this intervention. At that time, patient was placed on Keppra, phenytoin, and dexamethasone p.o. Was following at this institution with Dr. Lucero. ER documentation also notes that the family had otherwise refused treatment for his lung cancer. Patient apparently had several seizures today as witnessed by the . She was concerned and felt that the patient was ready to transition to hospice care and she required assistance. Patient had been seen by EMS and was given 4 mg total Ativan. Was told that Dr. Corcoran from palliative care is already evaluate the patient spoke to the family and we are now working towards transition to hospice care. Admission Exam Per Admitting Provider Constitutional: Patient is obtunded and does not respond to verbal stimulus Cachectic Respiratory: normal respiratory effort Auscultation: + diminished lung sounds Very limited exam Cardiovascular: Rate/Rhythm: regular rate and regular rhythm Very limited exam Gastrointestinal (Abdomen): normal bowel sounds, soft, nontender, no hepatosplenomegaly Neurologic: Obtunded, does move all extremities ago without meaning Principal Diagnosis Epileptic Seizure, Metastatic Disease with Vasogenic Edema Discharge Exam Constitutional well developed, + frail appearing, cooperative and comfortable; no acute distress Eyes + anicteric sclerae and PERRL Neck trachea midline, no thyromegaly Respiratory normal respiratory effort, lungs clear to auscultation normal respiratory effort; no respiratory distress, no cough and not tachypneic Auscultation: + diminished lung sounds (bases); no crackles and no wheezes Cardiovascular RRR, no murmur, no edema Rate/Rhythm: regular rate and regular rhythm Gastrointestinal (Abdomen) normal bowel sounds, soft, nontender, no hepatosplenomegaly Musculoskeletal Head/Neck/Chest: normocephalic, head atraumatic and neck supple Extremities: + abnormal strength (generalized weakness); + extremities abnormal to inspection (several fingers amputated) Skin no rashes, warm and dry Neurologic CN's II-XI intact bilaterally, deep tendon reflexes 2+ bilaterally, moves all extremities and awake; no focal motor deficits and not confused Psychiatric Orientation: alert, oriented to person, oriented to place and cooperative; + not oriented to time Genitourinary rosario draining yellow urine Lymphatic no cervical or axillary lymphadenopathy Discharge Data Allergies Allergy/AdvReac Type Severity Reaction Status Date / Time No Known Allergies Allergy Verified 03/01/21 11:04 Consultations 03/01/21 10:19 Consult Palliative Care Stat 03/01/21 12:26 ED Decision to Admit Stat Ordered Studies 03/01/21 10:10 CT head/brain wo con Stat Hospital Course (1) Epileptic seizure: * Likely secondary to metastasis x2 in brain --> CT scan reveals vasogenic edema. * Of note, patient was also subtherapeutic on valproic acid and phenytoin--> Phenytoin 3.9, Valproic Acid 20 * Continued on Decadron 4 mg IV twice daily while inpatient -- changed to PO on discharge and will need continued indefinitely as patient without want for treatment for cancer * treated initially with IV Valproic acid 500 BID and Phenytoin 100 TID continued valproic acid 500mg BID, Phenytoin 100mg TID, Keppra 1g BID PO at discharge DVT prophylaxis with Lovenox while here (2) Lung cancer metastatic to brain: * Patient previously refused any treatment for this * Palliative care consult -- voiced he wanted to go home but did not want to expose 17yo daughter/28yo son to his at home and family providing care * Arranged to [facility] at discharge and they will bill insurance. Not able to skill first. * Discharging on comfort measures (3) Back pain: * unsure if he has bone mets, no further work-up at this time. Would not be surprised if metastatic disease given pain, primarily in back * Seems more comfortable despite increased pain rating * Increased fentanyl to 50mcg daily -- continued at d/c. Also sent for roxanol 10mg PO as needed but patient reported pain tolerable with current regimen (4) Hypertension: * BP 148/79 * Continued amlodipine at d/c (5) DVT prophylaxis: * Lovenox while inpatient Discharge to [facility] this evening This evening when patient being set up for transportation his brother came to visit. Was very upset about his brother's condition as he thought he was bedbound and now that he is seeing him does not understand why patient's did not want to take him home. He states he's had issues in the past and had a PFT against her when he had POA of patient in 2014 but he since then relinquished that when patient and got back together after initial surgery in 2015. Brother states he would be willing to take him home and have his partner help with care and would rather work with a hospice agency to just come in to make sure he is comfortable and get supplies they need. He stated that he has 100s of prior co-workers who would love to visit Mr Doe at home and spend time with him and is in disbelief as to how his brother is going to a SNF. Nursing provided brother with information for [facility] and hospice agency and brother is to call tomorrow and have further conversations with regarding getting Дмитрий home from [facility] to either home or his house, whichever is possible if continues to not want to have him at home during this time. Total Time Total Time Spent Total Time Spent (In Minutes): 70 Discharge Plan Discharge Items Patient Disposition: Transfer [facility] Reason For Visit: SEIZURE Discharge Diagnosis: Metastatic Lung Cancer, Weakness, Brain Edema from metastatic disease Goals: You have been hospitalized for an acute medical problem. During your stay at [facility], we have made an effort to correct the problem that brought you to the hospital while keeping you as comfortable as possible. Medications were used to bring your condition under control and your discharge instructions will include directions for any medications you should take after leaving the hospital. Please make sure you see your Primary Care Provider as part of your follow up plan. Activity: Resume your previous activity Non-emergency contact: Primary Care Provider Call non-emergency contact if: you have any medication questions, your symptoms worsen, your pain is not controlled and your pain is concerning for you Follow-up/Referrals: Ubaldo Armstrong, [Primary Care Provider] - Diet: Regular Addtl Attending Provider Instructions: You have been hospitalized for seizure and this was found to be related to mass in your brain secondary to metastatic cancer. You were treated with anticonvulsants and steroids to help with edema and these will be continued as Decadron 2mg by mouth twice daily to help with symptoms. You were found to have low levels of your Dilantin and divalproex and medications were given to help control symptoms and you will be continued on your prior regimen of divalproex, Dilantin and levetiracetam. You have been evaluated by palliative care and decision was made to pursue more comfort approach and medications have been titrated to obtain pain control. You were given a fentanyl patch and this was increased to 50mcg daily and will need to be changed every three days. You are also being sent with oral morphine, called Roxanol, 10mg by mouth every hour as needed for pain. As discussed, with your medical marijuana card, it may be a good idea to get a caregiver card to see if alternatives/tinctures/solutions may be successful adjunct treatment for pain control. You have been set up to go to a facility during this transition and when the time comes hospice can come in for further adjustments/increases as needed. You should follow up with your primary care provider to monitor your progress. Please return to the emergency department with any symptoms that are worrisome for you. It has been a pleasure being a part of the medical team providing for you while you have been in the hospital. Take care! Pending Studies at Discharge: No Stand-Alone Forms: [facility] Skilled Items Patient informed of condition?: Yes DNR: Yes Discharge Level of Care: Other Communicable Disease: No Discharge Prognosis: Stable Lines: None Urinary Catheter: Yes (For comfort) Medications and DC Order Prescriptions: New fentanyl 50 mcg/hr Patch 72 Hour 50 mcg transdermal Q3D@1530 Qty: 5 RF: 0 polyethylene glycol 3350 [Miralax] 17 gram Powder In Packet 17 g PO DAILY Qty: 14 RF: 0 sennosides-docusate sodium [Senokot-S] 8.6-50 mg Tablet 1 tab PO QAM Qty: 30 RF: 0 morphine concentrate 100 mg/5 mL (20 mg/mL) solution 10 mg PO Q1H PRN (Reason: pain) Qty: 30 RF: 0 Continued naproxen 500 mg tablet 500 mg PO BID RF: 0 cyclobenzaprine 5 mg tablet 5 mg PO HS Qty: 30 RF: 5 amlodipine 5 mg tablet 5 mg PO DAILY Qty: 90 RF: 3 levetiracetam [Keppra] 500 mg tablet 1,000 mg PO BID Qty: 120 RF: 3 pantoprazole 40 mg tablet,delayed release (DR/EC) 40 mg PO DAILY Qty: 30 RF: 5 phenytoin sodium extended 100 mg capsule 100 mg PO TID RF: 0 mecobalamin (vitamin B12) 1,000 mcg tablet,chewable 1,000 mcg PO DAILY RF: 0 magnesium 250 mg tablet 250 mg PO DAILY RF: 0 melatonin 10 mg tablet 10 mg PO HS PRN (Reason: Insomnia) RF: 0 prevagen 1 tab PO DAILY RF: 0 medical marijuana 1 tab PO DAILY RF: 0 omega-3 fatty acids 1,000 mg capsule 1,000 mg PO DAILY RF: 0 pyridoxine (vitamin B6) 100 mg tablet 100 mg PO DAILY RF: 0 divalproex 500 mg tablet extended release 24 hr 500 mg PO BID RF: 0 dexamethasone 4 mg tablet 4 mg PO BID Qty: 60 RF: 0 Discontinued oxycodone-acetaminophen [Percocet] 5-325 mg tablet 1 tab PO TID PRN (Reason: pain) Qty: 60 RF: 0 fentanyl 25 mcg/hr patch 72 hour See Rx Instructions .ROUTE .COMPLEX RF: 0 Discharge Orders: Discharge Order (Routine); Ordered 03/10/21 Ordered By: Nora Caban Admission Data Admit Date/Time: 03/01/21 12:57 Attending Provider: Valdo Glez Admit Provider: Jono Grimaldo Primary Care Provider: Ubaldo Armstrong Other Providers: Janee Corcoran ; Jono Griamldo ; [place] ; [facility], Other Interventions: Discharge Summary Assessment (RN) Last Done: 03/10/21 11:58 Coding Level of Care Code D/C Day Management >30 mins Diagnoses Epileptic seizure G40.909 Lung cancer metastatic to brain C34.90; C79.31 Back pain M54.9 Hypertension I10 DVT prophylaxis Z29.9
== END 2021-03-10 18:15 | DRG 54 ==
LOC: ED 09:38 → 2S 12:57 → SUATTDRO 12:57 → 2S 16:01 → 3N 03-02 17:12